=== PATIENT | male | born 1980 | race Caucasian/White ===

== ENCOUNTER 2022-03-17 14:39 | Emergency (ER) | payer OTHER ==
[~2022-03-17] VITALS: Ht 170.2 cm; Wt 97.0 kg
[2022-03-17 14:54] VITALS: BP 124/86
== END 2022-03-17 17:47 | disposition left against medical advice (07) ==
LOC: ER 14:39
DX: Z53.21 Procedure and treatment not carried out due to patient leaving prior to being seen by health care provider (principal)

== ENCOUNTER 2023-01-18 00:10 | Emergency (ER) | payer MEDICAID, OTHER ==
[~2023-01-18] VITALS: Ht 170.2 cm; Wt 77.0 kg
[2023-01-18 00:12] VITALS: BP 158/70
[2023-01-18] MEDS ORDERED: KETOROLAC 60MG/2ML VIAL IM STA (02:22)
[2023-01-18 02:47] LABS: CLARITY URINE CLEAR (CLEAR); COLOR URINE YELLOW (YELLOW); KETONES URINE NEGATIVE (NEGATIVE); LEUKOCYTE ESTERASE URINE NEGATIVE (NEGATIVE); NITRITE URINE NEGATIVE (NEGATIVE); OCCULT BLOOD URINE NEGATIVE (NEGATIVE); PH URINE 6.5 (4.5-8.0); PROTEIN URINE NEGATIVE (NEGATIVE); SPECIFIC GRAVITY URINE 1.011 (1.005-1.030); UROBILINOGEN URINE 0.2 E.U./dL (0.2-1.0)
[2023-01-18 03:01] LABS: EOSINOPHILS % 3.3 % (0.0-5.0); HEMATOCRIT. 46.1 % (42.0-52.0); HEMOGLOBIN. 15.7 g/dL (14.0-18.0); LYMPHOCYTES % 40.9 % (20.0-50.0); MEAN CORPUSCULAR HEMOGLOBIN 31.6 pg (28.0-32.0); MEAN PLATELET VOLUME 10.2 fl (7.4-10.4); MONOCYTES % 7.6 % (2.0-8.0); NEUTROPHILS % 47.2 % (40.0-76.0); PLATELET 205 x1000/uL (130-400); RED BLOOD CELL COUNT 4.96 mill/uL (4.7-6.1); RED CELL DISTRIBUTION WIDTH 13.6 % (11.6-14.6)
[2023-01-18 03:08] LABS: CHLORIDE 99 mEq/L (98-107)
[2023-01-18] MEDS: POTASSIUM CHLORIDE 20MEQ TABLET SR PO NR ×2 (03:40→04:07)
[2023-01-18] MEDS ORDERED: LIDOCAINE HCL/PF 1% 10 MG/ML 5ML VIAL INFIL ONE (03:45)
[2023-01-18] MEDS ORDERED: FUROSEMIDE 40MG TABLET PO NR (04:45)
[2023-01-18] MEDS ORDERED: TRIA1TAB94 MT (04:47)
[2023-01-18] MEDS ORDERED: POTA10CA42 PO (04:47)
[2023-01-18] MEDS ORDERED: DOXY100T28 PO (04:48)
[2023-01-18] MEDS ORDERED: NAPR-681 PO (04:48)
== END 2023-01-18 05:00 | disposition home or self-care (01) ==
LOC: ER 00:13
DX: R60.0 Localized edema (principal); L73.9 Follicular disorder, unspecified; E87.6 Hypokalemia; R74.01 Elevation of levels of liver transaminase levels; I10 Essential (primary) hypertension
CPT/HCPCS: 36415; 80053; 81003; 83880; 85025; 93970; 96372; 99285; J1885; J3490; Z7610